=== PATIENT | male | born 1955 | race Caucasian/White ===

== ENCOUNTER 2018-01-24 21:14 | Emergency (ER) | payer MEDICARE ==
[2018-01-24 21:52] VITALS: O2SAT 98
[2018-01-24] MEDS ORDERED: Zofran 4 MG/2 ML VIAL IV ONE (22:10)
[2018-01-24] MEDS ORDERED: TORAdol 30 mg Injection IV ONE (22:11)
[2018-01-24] MEDS ORDERED: DUONEB 0.5-3 MG/3 ml Neb IH ONE ×2 (22:11→22:21)
[2018-01-24] MEDS ORDERED: solu-MEDROL 125 MG IV ONE (22:11)
[2018-01-24] MEDS ORDERED: Sodium Chloride 0.9% 1000 ML 1,000 ML IV SCH (22:15)
--- NOTE | 2018-01-24 22:18 | ERPHSYRPT ---
- History of Present Illness Time Seen by Provider: 01/24/18 21:50 Source: patient Exam Limitations: clinical condition Patient Subjective Stated Complaint: left shoulder pain and vomiting x 1 last night. nasal congestion Triage Nursing Assessment: alert and oriented. staets pain in left shoulder ran out of pain meds.. left [place]MA from [place] in [facility] on monday. was in for suicidal ideations.. denies at this time.. staes was exposed to some virus and now has nasal congestion and vomited x 1 yesterday. lungs clear.. denies fever. Physician History: PATIENT WITH A HISTORY OF COPD, CHRONIC LEFT SHOULDER PAIN X 6 MONTHS, SCHEDULED FOR ROTATOR CUFF SURGERY IN NEAR FUTURE. PATIENT LEFT [place] [facility] 3 DAYS AGO WITHOUT HIS MEDICATIONS. HE COMPLAINS OF PRODUCTIVE COUGH, NAUSEA, INCREASING SHOULDER PAIN. HE DENIES FEVER CHILLS, CHEST PAIN OR NIGHT SWEATS. Timing/Duration: day(s) Activities at Onset: activity Severity of Dyspnea-Max: moderate Severity of Dyspnea-Current: moderate Possible Cause: occasional episodes Modifying Factors: Improves With: albuterol inhaler, coughing, exertion Associated Symptoms: cough, productive cough (PAIN IN LEFT SHOULDER) International travel in last 2 weeks: No Allergies/Adverse Reactions: chlorpromazine [From Thorazine] Allergy (Verified 01/24/18 22:39) fluoxetine Allergy (Verified 01/24/18 22:39) metaproterenol [From Metaprel] Allergy (Verified 01/24/18 22:39) nalbuphine [From Nubain] Allergy (Verified 01/24/18 22:39) Hx Tetanus, Diphtheria Vaccination/Date Given: Yes Hx Influenza Vaccination/Date Given: No Hx Pneumococcal Vaccination/Date Given: No Immunizations Up to Date: (unknown) - Review of Systems Constitutional: No Fever, No Chills Eyes: No Symptoms Ears, Nose, & Throat: No Symptoms Respiratory: Cough, Dyspnea Cardiac: No Chest Pain, No Edema, No Syncope Abdominal/Gastrointestinal: Nausea, No Abdominal Pain, No Vomiting, No Diarrhea Genitourinary Symptoms: No Dysuria Musculoskeletal: Joint Pain, No Back Pain, No Neck Pain Skin: No Rash Neurological: No Dizziness, No Focal Weakness, No Sensory Changes Psychological: No Symptoms Endocrine: No Symptoms All Other Systems: Reviewed and Negative - Past Medical History Pertinent Past Medical History: Yes Cardiac History: Hypertension, Myocardial Infarction (DC) Respiratory History: COPD Endocrine Medical History: Diabetes Type II Musculoskeletal History: Arthritis GI Medical History: No Pertinent History History: No Pertinent History Psycho-Social History: Anxiety, Depression Male Reproductive Disorders: No Pertinent History - Past Surgical History Past Surgical History: Yes Cardiac: Cardiac Catheterization Musculoskeletal: Orthopedic Surgery Other Surgical History: tonsilectomy - Social History Smoking Status: Current every day smoker Exposure to second hand smoke: No Drug Use: none Patient Lives Alone: No - Nursing Vital Signs Nursing Vital Signs: Initial Vital Signs Temperature 98.1 F 01/24/18 21:43 Pulse Rate 75 01/24/18 21:43 Respiratory Rate 18 01/24/18 21:43 Blood Pressure 139/90 01/24/18 21:43 O2 Sat by Pulse Oximetry 98 01/24/18 21:43 Pain Scale Pain Intensity 5 - Physical Exam General Appearance: no apparent distress, alert Eye Exam: PERRL/EOMI Neck Exam: normal inspection, supple Respiratory Exam: airway intact (NO ACCESSORY MUSCLE USE, NO INTERCOSTAL RETRACTIONS), wheezing Cardiovascular/Chest Exam: normal heart sounds, regular rate/rhythm Abdominal/Gastrointestinal Exam: soft, No tenderness, No distention, No mass Extremity Exam: normal inspection, no calf tenderness, no pedal edema, limited range of motion (LEFT SHOULDER WITH MARKED TENDERNESS, NO SWELLING OR DEFORMITY) Peripheral Pulses Exam: carotid (R): 2+, carotid (L): 2+, femoral (R): 2+, femoral (L): 2+, dorsalis-pedis (R): 2+, dorsalis-pedis (L): 2+ Neurologic Exam: alert, oriented x 3, cooperative, 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, sensation nml, No motor deficits Skin Exam: normal color, warm, No dry SpO2 Interpretation: normal SpO2: 98 Oxygen Delivery: Room Air - Course EKG Interpreted by Me: RATE, Sinus Rhythm, NORMAL AXIS, Non-specific ST Changes - Radiology Exams Chest X-ray Interpretation: Interpreted by me, No Infiltrates (ELEVATION RIGHT HEMIDIAPHRAM) Ordered Tests: Active Orders 24 hr Category Date Time Status EKG-ER Only STAT Care 01/24/18 22:20 Active IV Insertion STAT Care 01/24/18 22:06 Active CHEST 1 VIEW (PORTABLE) Stat Exams 01/24/18 22:08 Taken BMP Stat Lab 01/24/18 22:30 Completed CBC W DIFF Stat Lab 01/24/18 22:30 Completed Manual Differential NC Stat Lab 01/24/18 22:30 Completed TROPONIN Q3H Lab 01/24/18 22:30 Completed TROPONIN Q3H Lab 01/25/18 01:30 Ordered TROPONIN Q3H Lab 01/25/18 04:30 Ordered TROPONIN Q3H Lab 01/25/18 07:30 Ordered TROPONIN Q3H Lab 01/25/18 10:30 Ordered Respiratory Nebulizer STAT RT 01/24/18 22:12 Completed Medication Summary Generic Name Dose Route Start Last Admin Trade Name Freq PRN Reason Stop Dose Admin Sodium Chloride 1,000 mls @ 200 mls/hr 01/24/18 22:15 01/24/18 22:38 Sodium Chloride 0.9% 1000 Ml IV 02/23/18 22:14 200 mls/hr .Q5H RADAMES Administration Discontinued Medications Generic Name Dose Route Start Last Admin Trade Name Freq PRN Reason Stop Dose Admin Albuterol/Ipratropium 3 ml 01/24/18 22:11 01/24/18 22:20 Duoneb 0.5-3 Mg/3 Ml Neb IH 01/24/18 22:12 3 ml STAT ONE Administration Albuterol/Ipratropium Confirm 01/24/18 22:21 Duoneb 0.5-3 Mg/3 Ml Neb Administered 01/24/18 22:22 Dose 3 ml IH .STK-MED ONE Ceftriaxone Sodium/Dextrose 1 g in 50 mls @ 100 mls/hr 01/24/18 23:10 23:18 Rocephin 1 Gm-D5w 50 Ml Bag IV 01/24/18 23:39 100 mls/hr STAT STA Administration Ceftriaxone Sodium/Dextrose Confirm 01/24/18 23:17 Rocephin 1 Gm-D5w 50 Ml Bag Administered 01/24/18 23:18 Dose 1 g in 50 mls @ ud IV .STK-MED ONE Ketorolac Tromethamine 30 mg 01/24/18 22:11 01/24/18 22:38 Toradol 30 Mg Injection IV 01/24/18 22:12 30 mg STAT ONE Administration Ketorolac Tromethamine Confirm 01/24/18 22:32 Toradol 30 Mg Injection Administered 01/24/18 22:33 Dose 30 mg .ROUTE .STK-MED ONE Methylprednisolone Sodium Succinate 125 mg 01/24/18 22:11 01/24/18 22:38 Solu-Medrol 125 Mg IV 01/24/18 22:12 125 mg STAT ONE Administration Methylprednisolone Sodium Succinate Confirm 01/24/18 22:32 Solu-Medrol 125 Mg Administered 01/24/18 22:33 Dose 125 mg .ROUTE .STK-MED ONE Ondansetron HCl 4 mg 01/24/18 22:10 01/24/18 22:39 Zofran 4 Mg/2 Ml Vial IV 01/24/18 22:11 4 mg STAT ONE Administration Ondansetron HCl Confirm 01/24/18 22:32 Zofran 4 Mg/2 Ml Vial Administered 01/24/18 22:33 Dose 4 mg .ROUTE .STK-MED ONE Lab/Rad Data: Laboratory Result Diagrams 01/24/18 22:30 01/24/18 22:30 Laboratory Results 01/24/18 01/24/18 01/24/18 Range/Units 22:30 22:30 22:30 WBC 12.7 H (4.0-10.5) K/mm3 RBC 4.77 (4.1-5.6) M/mm3 Hgb 14.2 (12.5-18.0) gm/dl Hct 41.9 L (42-50) % MCV 87.8 (78-100) fl MCH 29.8 (26-32) pg MCHC 33.9 (32-36) g/dl RDW 14.4 H (11.5-14.0) % Plt Count 293 (150-450) K/mm3 MPV 9.9 H (6-9.5) fl Absolute Granulocytes 9.28 H (1.4-6.9) Segmented Neutrophils 67 H (36.-66.) % Lymphocytes (Manual) 18 L (24-44) % Monocytes (Manual) 7 (0.0-12.0) % Eosinophils (Manual) 8 H (0.00-3.0) % Differential Comment NORMAL Platelet Estimate NORMAL (NORMAL) Sodium 141 (137-145) mmol/L Potassium 4.4 (3.5-5.1) mmol/L Chloride 106 (98-107) mmol/L Carbon Dioxide 23 (22-30) mmol/L Anion Gap 16.4 H (5-15) MEQ/L BUN 20 (9-20) mg/dL Creatinine 0.86 (0.66-1.25) mg/dL Estimated GFR > 60.0 ML/MIN Glucose 123 H (74-106) mg/dL Calcium 9.5 (8.4-10.2) mg/dL Troponin I < 0.012 (0.000-0.034) ng/mL - Progress Progress: improved Progress Note: 01/24/18 22:18 IV NORMAL SALINE 200ML/HR, SOLUMEDROL 125MG IV, ZOFRAN 4MG IV, TORADOL 30MG IV 01/24/18 22:30 Counseled pt/family regarding: lab results, diagnosis, need for follow-up, rad results - Departure Time of Disposition: 00:33 Departure Disposition: Home Clinical Impression: EXACERBATION COPD, CHRONIC LEFT SHOULDER PAIN Condition: Stable Critical Care Time: No Referrals: HOSPITAL,'S [Primary Care Provider] - Additional Instructions: ANTIBIOTIC OMNICEF 300MG TWICE DAILY FOR 10 DAYS. PERCOGESIC 1-2 TABLETS EVERY 4 -6 HOURS NEEDED FOR PAIN. WEAR LEFT ARM SLING FOR COMFORT. CONSULT YOUR PRIMARY CARE PROVIDER FOR FOLLOWUP TOMORROW TO OBTAIN YOUR MEDICATIONS. Prescriptions: Acetaminophen/Diphenhydramine [Percogesic 325-12.5 mg Tablet] 1 tablet PO Q4H PRN PRN #20 tablet PRN Reason: Pain Cefdinir [Omnicef 300 mg] 300 mg PO BID #20 capsule
[2018-01-24] MEDS ORDERED: solu-MEDROL 125 MG ONE (22:32)
[2018-01-24] MEDS ORDERED: Zofran 4 MG/2 ML VIAL ONE (22:32)
[2018-01-24] MEDS ORDERED: TORAdol 30 mg Injection ONE (22:32)
[2018-01-24] MEDS ORDERED: Sodium Chloride 0.9% 1000 ML 1,000 ML ONE (22:32)
[2018-01-24 22:35] LABS: Granulocyte Absolute (ANC) 9.28 (1.4-6.9); Hematocrit 41.9 % (42-50); Hemoglobin 14.2 gm/dl (12.5-18.0); Mean Cell Volume 87.8 fl (78-100); Mean Corpuscular Hemoglobin 29.8 pg (26-32); Mean Corpuscular Hgb Concent. 33.9 g/dl (32-36); Mean Platelet Volume 9.9 fl (6-9.5); Platelet Count 293 K/mm3 (150-450); Red Blood Count 4.77 M/mm3 (4.1-5.6); Red Cell Distribution Width 14.4 % (11.5-14.0); White Blood Count 12.7 K/mm3 (4.0-10.5)
[2018-01-24 22:47] VITALS: BP 155/100; PULSE 70
[2018-01-24 22:54] LABS: ANION GAP 16.4 MEQ/L (5-15); BLOOD UREA NITROGEN 20 mg/dL (9-20); CHLORIDE 106 mmol/L (98-107); Calcium 9.5 mg/dL (8.4-10.2); Carbon Dioxide 23 mmol/L (22-30); Creatinine 1 0.86 mg/dL (0.66-1.25); Glucose 123 mg/dL (74-106); Potassium 4.4 mmol/L (3.5-5.1); SODIUM 141 mmol/L (137-145)
[2018-01-24] MEDS ORDERED: ROCEPHIN 1 Gm-D5w 50 ml Bag** 1 G/50 ML IVPB IV STA (23:10)
[2018-01-24] MEDS ORDERED: ROCEPHIN 1 Gm-D5w 50 ml Bag** 1 G/50 ML IVPB IV ONE (23:17)
[2018-01-24 23:39] LABS: Eosinophil 8 % (0.00-3.0); Lymphocytes 18 % (24-44); Monocyte 7 % (0.0-12.0); Neutrophils 67 % (36.-66.); Platelet Estimate NORMAL (NORMAL); Total Cells Counted 100
--- NOTE | 2018-01-25 08:43 | XRAY ---
Indication: Cough and dyspnea. Comparison: None Portable apical lordotic chest demonstrates normal heart and lungs. Bony thorax intact with degenerative changes.
== END 2018-01-25 00:53 | disposition home or self-care (01) ==
LOC: ED 21:14
DX: M25.512 Pain in left shoulder (principal); J44.1 Chronic obstructive pulmonary disease with (acute) exacerbation
CPT/HCPCS: 36000; 36415; 71045; 80048; 84484; 85025; 93005; 94640; 96360; 96361; 96365; 96374; 96375; 99284; J0696; J1885; J2405; J2930; A9270-GY